=== PATIENT | female | born 1985 | race Hispanic/Latino ===

== ENCOUNTER 2023-10-13 19:28 | Inpatient (IN) | payer OTHER ==
[~2023-10-13] VITALS: Ht 162.6 cm; Wt 91.1 kg
[2023-10-13 20:27] LABS: BASOPHILS # (AUTO) 0.14 K/uL (0.00-0.20); BASOPHILS % (AUTO) 0.1 % (0.0-5.0); EOSINOPHILS # (AUTO) 0.29 K/uL (0.00-0.70); EOSINOPHILS % (AUTO) 0.1 % (0.0-8.0); HEMATOCRIT 30.2 % (36-48); IMMATURE GRANULOCYTE ABSOLUTE 0.61 K/uL (0-1); LYMPHOCYTES # (AUTO) 152.7 K/uL (1.0-4.8); LYMPHOCYTES % (AUTO) 75.8 % (21.0-51.0); MEAN CORPUSCULAR HEMOGLOBIN 27.5 pg (27.0-33.0); MEAN CORPUSCULAR HGB CONC 34.8 g/dL (32.0-36.0); MEAN CORPUSCULAR VOLUME 79.1 fL (79-99); MONOCYTES # (AUTO) 45.7 K/uL (0.1-1.0); MONOCYTES % (AUTO) 22.7 % (3.0-13.0); NEUTROPHILS # (AUTO) 2.1 K/uL (1.8-7.7); NUCLEATED RED BLOOD CELLS 0.1 % (0.0-0.19); PLATELET COUNT (AUTO) 24 K/uL (130-400); RED BLOOD CELL COUNT(AUTO) 3.82 MIL/uL (4.00-5.50); RED CELL DISTRIBUTION WIDTH 14.8 % (11.0-15.5)
[2023-10-13 20:37] LABS: WHITE BLOOD COUNT (AUTO) 201.5 K/uL (4.8-10.8)
[2023-10-13 20:39] LABS: HCG,QUALITATIVE URINE NEGATIVE (NEGATIVE)
[2023-10-13 20:41] LABS: APPEARANCE,URINE CLEAR (CLEAR); BILIRUBIN,URINE NEGATIVE (NEGATIVE); COLOR,URINE YELLOW (YELLOW); GLUCOSE, URINE (UA) >=1000 mg/dL (NEGATIVE); KETONES,URINE NEGATIVE (NEGATIVE); LEUKOCYTE ESTERASE ,URINE NEGATIVE Leu/uL (NEGATIVE); NITRATE,URINE NEGATIVE (NEGATIVE); OCCULT BLOOD,URINE NEGATIVE (NEGATIVE); PH,URINE 5.5 (5.0-8.0); PROTEIN,URINE 10 mg/dL (NEGATIVE); UROBILINOGEN,URINE 0.2 mg/dL (0.2-1.0)
[2023-10-13 20:42] LABS: ADD UA MICROSCOPIC YES
[2023-10-13 20:44] LABS: ALBUMIN 3.1 g/dL (3.5-5.0); BILIRUBIN,TOTAL 1.2 mg/dL (0.2-1.0); CREATININE 0.9 mg/dL (0.5-1.5); POTASSIUM 4.2 mmol/L (3.5-5.1); TOTAL PROTEIN, SERUM 6.7 g/dL (6.0-8.3)
[2023-10-13 20:45] LABS: BACTERIA,URINE RARE /HPF (None Seen); HYALINE CASTS, URINE 0-1 /LPF (0-1 /LPF); MUCUS,URINE RARE LPF (None Seen); OTHER CASTS, URINE 1 /LPF (None Seen); RBC,URINE 0-1 /HPF (0-1); SQUAMOUS EPITHELIAL CELL,UR FEW /HPF (0-2); YEAST,URINE BUDDING RARE /HPF (None Seen)
[2023-10-13] MEDS ORDERED: IOHEXOL-350 75 ML VIAL IV ONE (20:48)
[2023-10-13 21:09] LABS: BLASTS, MANUAL % 56 (0-0); LYMPHOCYTES % (MANUAL) 43 % (22-44); MAN.DIFF COMMENT-IMPRESSION MANUAL DIFFERENTIAL; SEGMENTED NEUTROPHILS % 1 % (40-70); TOTAL CELLS COUNTED 100
[2023-10-13 21:10] LABS: PLATELET MORPHOLOGY COMMENT MARKED DECREASE
[2023-10-13 21:25] LABS: ABG BASE EXCESS 0.7 mmol/L (-2.0-3.0); ABG HCO3 23.9 mmol/L (21.0-28.0); ABG OXYGEN SATURATION 94.6 % (95.0-99.0); ABG PCO2 34 mmHg (32-45); ABG PH 7.462 (7.35-7.450); DEVICE COMMENT ROOM AIR; PO2, ARTERIAL BG 67.8 mmHg (83.0-108.0); VENT MODE, BG RA (ROOM AIR)
[2023-10-13] MEDS: 0.9%NACL 1000ML 3,000 ML IV ONE (21:56)
[2023-10-13] MEDS: ZOSYN 3.375GM+NS 50ML 50 ML IVPB STA (21:59)
[2023-10-13] MEDS ORDERED: IOHEXOL-350 50ML VIAL IV ONE (22:07)
[2023-10-13] MEDS: VANCOMYCIN 1G/250ML KIT 250 ML IV ONE (22:27)
[2023-10-13] MEDS ORDERED: MAGNESIUM 2GM PREMIX 50ML 50 ML IV PRN (23:30)
[2023-10-13] MEDS ORDERED: MORPHINE 2 MG SYG IV PRN (23:30)
[2023-10-13] MEDS ORDERED: ONDANSETRON 4MG INJ IV PRN (23:30)
[2023-10-13] MEDS ORDERED: MORPHINE 4 MG SYG IV PRN (23:30)
[2023-10-13] MEDS ORDERED: POTASSIUM CHLORIDE 20MEQ/100ML 100 ML IV PRN (23:30)
[2023-10-13] MEDS ORDERED: POTASSIUM CHLORIDE 10% ELIXIR 20 MEQ/15 ML UDCUP PO PRN (23:30)
[2023-10-13] MEDS: LACTATED RINGERS 1000ML 1,641 ML IV ONE (23:36)
[2023-10-14] MEDS: ZOSYN 3.375GM+NS 50ML 50 ML IV SCH (04:24)
[2023-10-14] MEDS: ACETAMINOPHEN 325 MG TAB PO PRN (04:24)
[2023-10-14] MEDS: 0.9%NACL 1000ML 1,000 ML IV SCH (04:24)
[2023-10-14 04:50] LABS: BASOPHILS # (AUTO) 0.12 K/uL (0.00-0.20); BASOPHILS % (AUTO) 0.1 % (0.0-5.0); EOSINOPHILS # (AUTO) 0.23 K/uL (0.00-0.70); EOSINOPHILS % (AUTO) 0.1 % (0.0-8.0); HEMATOCRIT 24.6 % (36-48); IMMATURE GRANULOCYTE ABSOLUTE 0.39 K/uL (0-1); LYMPHOCYTES # (AUTO) 141.4 K/uL (1.0-4.8); LYMPHOCYTES % (AUTO) 75.7 % (21.0-51.0); MEAN CORPUSCULAR HGB CONC 34.6 g/dL (32.0-36.0); MEAN CORPUSCULAR VOLUME 78.1 fL (79-99); MONOCYTES # (AUTO) 42.7 K/uL (0.1-1.0); MONOCYTES % (AUTO) 22.9 % (3.0-13.0); NEUTROPHILS # (AUTO) 1.9 K/uL (1.8-7.7); NUCLEATED RED BLOOD CELLS 0.1 % (0.0-0.19); PLATELET COUNT (AUTO) 26 K/uL (130-400); RED BLOOD CELL COUNT(AUTO) 3.15 MIL/uL (4.00-5.50); RED CELL DISTRIBUTION WIDTH 14.7 % (11.0-15.5)
[2023-10-14 04:53] LABS: WHITE BLOOD COUNT (AUTO) 186.8 K/uL (4.8-10.8)
[2023-10-14 04:56] LABS: HEMOGLOBIN A1C 12.7 % (4.0-6.0)
[2023-10-14 05:08] LABS: INR 0.94 (0.85-1.15); PROTHROMBIN TIME 10.9 SEC (9.6-11.6)
[2023-10-14 05:09] LABS: PARTIAL THROMBOPLASTIN TIME 24.2 SEC (26.3-35.5)
[2023-10-14 05:17] LABS: CREATININE 0.7 mg/dL (0.5-1.5); MAGNESIUM 1.7 mg/dL (1.80-2.40); PHOSPHORUS 5.1 mg/dL (2.5-4.9); POTASSIUM 4.3 mmol/L (3.5-5.1)
[2023-10-14] MEDS: FAMOTIDINE 20MG TAB PO SCH (08:14)
[2023-10-14] MEDS: INSULIN HUMULIN R 100 UNIT/ML 3ML SQ SCH (08:14)
[2023-10-14 20:35] VITALS: BP 136/75; PULSE 116; RESP 20; O2SAT 97
[2023-10-14 23:56] VITALS: BP 125/71; PULSE 102; RESP 20
[2023-10-15 04:00] VITALS: BP 118/73; PULSE 97; RESP 20
[2023-10-15 05:39] LABS: ALBUMIN 2.5 g/dL (3.5-5.0); BILIRUBIN,TOTAL 0.9 mg/dL (0.2-1.0); CREATININE 0.6 mg/dL (0.5-1.5); POTASSIUM 3.1 mmol/L (3.5-5.1); TOTAL PROTEIN, SERUM 5.5 g/dL (6.0-8.3)
[2023-10-15 05:41] LABS: BASOPHILS # (AUTO) 1.82 K/uL (0.00-0.20); BASOPHILS % (AUTO) 0.9 % (0.0-5.0); EOSINOPHILS % (AUTO) 0.1 % (0.0-8.0); HEMATOCRIT 22.7 % (36-48); IMMATURE GRANULOCYTE ABSOLUTE 0.36 K/uL (0-1); LYMPHOCYTES # (AUTO) 155.6 K/uL (1.0-4.8); LYMPHOCYTES % (AUTO) 79.6 % (21.0-51.0); MEAN CORPUSCULAR HEMOGLOBIN 27.6 pg (27.0-33.0); MEAN CORPUSCULAR HGB CONC 35.2 g/dL (32.0-36.0); MEAN CORPUSCULAR VOLUME 78.3 fL (79-99); MONOCYTES % (AUTO) 17.4 % (3.0-13.0); NEUTROPHILS # (AUTO) 3.5 K/uL (1.8-7.7); NEUTROPHILS % (AUTO) 1.8 % (40.0-77.0); NUCLEATED RED BLOOD CELLS 0.1 % (0.0-0.19); PLATELET COUNT (AUTO) 24 K/uL (130-400)
[2023-10-15 05:56] LABS: WHITE BLOOD COUNT (AUTO) 195.4 K/uL (4.8-10.8)
[2023-10-15] MEDS: KCL 20 MEQ ERTAB PO PRN (06:26)
[2023-10-15 08:00] VITALS: O2SAT 97
[2023-10-15 08:03] VITALS: BP 108/69; PULSE 95; RESP 20
[2023-10-15 11:06] VITALS: BP 117/71; PULSE 109; RESP 18
[2023-10-15] MEDS ORDERED: DEXTROSE 50%-WATER 50 ML DISP.SYRIN IV PRN (15:00)
[2023-10-15] MEDS ORDERED: GLUCAGON 1MG KIT 1 MG ML IM PRN (15:00)
[2023-10-15] MEDS: ALLOPURINOL 100 MG TABLET PO SCH (16:07)
[2023-10-15] MEDS: HYDROXYUREA 500 MG CAP PO STA (16:07)
[2023-10-15 16:15] VITALS: BP 124/77; PULSE 109; RESP 20
[2023-10-15] MEDS: SODIUM BICARBONATE 650 MG TAB PO SCH (16:59)
[2023-10-15] MEDS: INSULIN HUMULIN R 100 UNIT/ML 3ML SQ SCH ×2 (18:04→18:05)
[2023-10-15 18:19] LABS: INR 0.95 (0.85-1.15); PROTHROMBIN TIME 11.1 SEC (9.6-11.6)
[2023-10-15 20:00] VITALS: BP 121/74; PULSE 112; RESP 18; O2SAT 97
[2023-10-16] VITALS (14 sets, daily range): BP systolic 106–131; BP diastolic 57–79; PULSE 103–119; RESP 16–20; O2SAT 99
[2023-10-16 04:49] LABS: BASOPHILS # (AUTO) 0.13 K/uL (0.00-0.20); BASOPHILS % (AUTO) 0.1 % (0.0-5.0); EOSINOPHILS # (AUTO) 0.16 K/uL (0.00-0.70); EOSINOPHILS % (AUTO) 0.1 % (0.0-8.0); IMMATURE GRANULOCYTE ABSOLUTE 0.47 K/uL (0-1); LYMPHOCYTES # (AUTO) 139.2 K/uL (1.0-4.8); LYMPHOCYTES % (AUTO) 70.3 % (21.0-51.0); MEAN CORPUSCULAR HEMOGLOBIN 27.1 pg (27.0-33.0); MEAN CORPUSCULAR HGB CONC 33.8 g/dL (32.0-36.0); MONOCYTES # (AUTO) 56.8 K/uL (0.1-1.0); MONOCYTES % (AUTO) 28.7 % (3.0-13.0); NEUTROPHILS # (AUTO) 1.3 K/uL (1.8-7.7); NEUTROPHILS % (AUTO) 0.6 % (40.0-77.0); PLATELET COUNT (AUTO) 17 K/uL (130-400); RED BLOOD CELL COUNT(AUTO) 2.55 MIL/uL (4.00-5.50)
[2023-10-16 05:06] LABS: ALBUMIN 2.4 g/dL (3.5-5.0); BILIRUBIN,TOTAL 0.8 mg/dL (0.2-1.0); CREATININE 0.7 mg/dL (0.5-1.5); POTASSIUM 3.7 mmol/L (3.5-5.1); TOTAL PROTEIN, SERUM 5.3 g/dL (6.0-8.3)
[2023-10-16 05:09] LABS: HEMATOCRIT 20.4 % (36-48)
[2023-10-16 06:24] LABS: BAND NEUTROPHILS % (MANUAL) 1 % (0-2); BLASTS, MANUAL % 35 (0-0); EOSINOPHILS % (MANUAL) 1 % (1-6); LYMPHOCYTES % (MANUAL) 60 % (22-44); MAN.DIFF COMMENT-IMPRESSION MANUAL DIFFERENTIAL; METAMYELOCYTES % 1 % (0-0); SEGMENTED NEUTROPHILS % 2 % (40-70); TOTAL CELLS COUNTED 100
[2023-10-16 06:25] LABS: PLATELET MORPHOLOGY COMMENT MARKED DECREASE
[2023-10-16 06:48] LABS: ERYTHROCYTE SEDIMENTATION RATE 90 MM/HR (0-20)
[2023-10-16] MEDS ORDERED: FENTANYL CITRATE PF 50 MCG/1 ML 2ML VIAL ONE (13:04)
[2023-10-16] MEDS ORDERED: MIDAZOLAM HCL 1 MG/ML 2ML VIAL ONE (13:05)
[2023-10-17] VITALS (7 sets, daily range): BP systolic 103–125; BP diastolic 55–77; PULSE 98–112; RESP 14–19; O2SAT 94–99
[2023-10-17] MEDS: ACETAMINOPHEN 325 MG TAB PO PRN (04:38)
[2023-10-17 04:42] LABS: BASOPHILS # (AUTO) 0.14 K/uL (0.00-0.20); BASOPHILS % (AUTO) 0.1 % (0.0-5.0); EOSINOPHILS # (AUTO) 0.19 K/uL (0.00-0.70); EOSINOPHILS % (AUTO) 0.1 % (0.0-8.0); IMMATURE GRANULOCYTE ABSOLUTE 0.32 K/uL (0-1); LYMPHOCYTES # (AUTO) 150.8 K/uL (1.0-4.8); LYMPHOCYTES % (AUTO) 73.8 % (21.0-51.0); MEAN CORPUSCULAR HEMOGLOBIN 27.3 pg (27.0-33.0); MEAN CORPUSCULAR VOLUME 80.4 fL (79-99); MONOCYTES # (AUTO) 51.6 K/uL (0.1-1.0); MONOCYTES % (AUTO) 25.3 % (3.0-13.0); NEUTROPHILS # (AUTO) 1.2 K/uL (1.8-7.7); NEUTROPHILS % (AUTO) 0.5 % (40.0-77.0); PLATELET COUNT (AUTO) 16 K/uL (130-400); RED BLOOD CELL COUNT(AUTO) 2.45 MIL/uL (4.00-5.50); RED CELL DISTRIBUTION WIDTH 15.3 % (11.0-15.5)
[2023-10-17 04:50] LABS: HEMATOCRIT 19.7 % (36-48); WHITE BLOOD COUNT (AUTO) 204.2 K/uL (4.8-10.8)
[2023-10-17 05:02] LABS: ALBUMIN 2.5 g/dL (3.5-5.0); BILIRUBIN,TOTAL 0.8 mg/dL (0.2-1.0); CREATININE 0.6 mg/dL (0.5-1.5); POTASSIUM 3.9 mmol/L (3.5-5.1); TOTAL PROTEIN, SERUM 5.4 g/dL (6.0-8.3)
[2023-10-17 05:19] LABS: WBC MORPHOLOGY CONSISTENT W/DIFF
[2023-10-17] MEDS: HYDROXYUREA 500 MG CAP PO SCH (13:49)
[2023-10-17] MEDS ORDERED: HYDROXYUREA 500 MG CAP PO SCH (21:00)
== END 2023-10-17 20:00 | disposition short-term general hospital (02) | DRG 871 ==
LOC: EDH 19:28 → EDHIP 19:29 → 4CH 10-14 19:53
PROVIDERS: ADMIT Internal Medicine; ATTEND Internal Medicine
PROC: 079T3ZX Drainage of Bone Marrow, Percutaneous Approach, Diagnostic (ICD-10-PCS; principal; 2023-10-16)
PROC: 02HV33Z Insertion of Infusion Device into Superior Vena Cava, Percutaneous Approach (ICD-10-PCS; 2023-10-16)
PROC: B548ZZA Ultrasonography of Superior Vena Cava, Guidance (ICD-10-PCS; 2023-10-16)
DX: A41.9 Sepsis, unspecified organism (principal); E43 Unspecified severe protein-calorie malnutrition; D61.818 Other pancytopenia; C91.00 Acute lymphoblastic leukemia not having achieved remission; E11.65 Type 2 diabetes mellitus with hyperglycemia; K76.0 Fatty (change of) liver, not elsewhere classified; R16.1 Splenomegaly, not elsewhere classified; N83.201 Unspecified ovarian cyst, right side; E66.9 Obesity, unspecified; I88.8 Other nonspecific lymphadenitis; L73.2 Hidradenitis suppurativa; Z59.7 Insufficient social insurance and welfare support; Z75.3 Unavailability and inaccessibility of health-care facilities; Z90.49 Acquired absence of other specified parts of digestive tract; Z68.34 Body mass index [BMI] 34.0-34.9, adult; Z79.84 Long term (current) use of oral hypoglycemic drugs
CPT/HCPCS: 36415; 36600; 38222; 70450; 71045; 71260; 74177; 77012; 80048; 80053; 81001; 81025; 82306; 82550; 82607; 82746; 82803; 82948; 83036; 83540; 83605; 83735; 83880; 84100; 84145; 84484; 84550; 85025; 85610; 85651; 85730; 86140; 86850; 86900; 86901; 87040; 87088; 88184; 88185; 88189; 93005; 99152; 99153; 99291; C1894; G0378; J1815; J2250; J2543; J3010; J3370; Q9967; A4510; C1830; G0500